=== PATIENT | female | born 1940 | race Caucasian/White ===

== ENCOUNTER → 2020-01-17 10:39 | Outpatient (CLI) | payer MEDICARE, SELFPAY ==
--- NOTE | ~2020-01-17 | CT_ITS ---
EXAMINATION: CT abdomen pelvis w con DATE: 01/17/2020 11:19 INDICATION: Left mid and lower abdominal pain TECHNIQUE: Computed tomography (CT) of the abdomen and pelvis was performed with 100 cc Omnipaque 350 intravenous contrast. Automated exposure control and iterative reconstruction technique were employe d. Exam dose: 981.41 mGy-cm total exam DLP. COMPARISON: None. FINDINGS: There is minimal discoid atelectasis in the left lower lobe. Mild cardiomegaly. No pericard ial or pleural effusion. Small sliding hiatal hernia. There are multiple up to approximately 1 cm faceted gallstones. No gallbladder wall thickening or per icholecystic fluid or inflammation. No hepatic, splenic, pancreatic, adrenal space-occupying mass lesion is evident. There is a 2.1 cm indeterminate hypoattenuating mass of the upper pole of the right kidney. Renal amandeep plasm is not excluded. Consider further evaluation with MRI. Approximately 5 mm hypoattenuating lesion of the lower pole of the right kidney, indeterminate. There is mild hydronephrosis and pelviectasis on the left. No left renal space occupying mass lesion is evident. No urinary tract calculus is evident. The urinary bladder is unremarkable. Status post hy sterectomy. Normal appendix. There are innumerable diverticula of the sigmoid and descending colon and to a lesser extent the righ t colon. There is prominent irregular thickening of the wall of the descending colon in the left midabdomen, w ith pericolic soft tissue irregular density. Differential diagnosis includes carcinoma of the descend ing colon, diverticulitis. There are multiple small soft tissue densities along the anterolateral asp ect of the abdomen along the anterior aspect of the proximal descending colon; soft tissue metastatic lesions or inflammatory or metastatic lymph nodes are not excluded. Diffuse idiopathic skeletal hyperostosis of the thoracic spine. Diffuse osteopenia. Grade 1 anterolisthesis at L4-5 due to degenerative change at the apophyseal joints. No suspicious osteolytic or osteoblastic lesions are noted. 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 IMPRESSION: Irregular focal soft tissue thickening of the wall of the descending colon, suspicious f or descending colon carcinoma, less likely diverticulitis. There may be some adjacent inflammatory or metastatic lymph nodes or metastases in the proximal descending colon and pericolic soft tissues 2.1 cm indeterminate hypoattenuating upper pole right renal mass; hypernephroma is not excluded Indeterminate 5 mm hypoattenuating lesion of the lower pole of the right kidney Cholelithiasis Small sliding hiatal hernia Reviewed, dictated and finalized at [facility]. Reviewed, dictated and finalized at [facility]. IMPRESSION: Irregular focal soft tissue thickening of the wall of the descendi ng colon, suspicious for descending colon carcinoma, less likely diverticulitis . There may be some adjacent inflammatory or metastatic lymph nodes or metastas es in the proximal descending colon and pericolic soft tissues 2.1 cm indeterminate hypoattenuating upper pole right renal mass; hypernephroma is not excluded Indeterminate 5 mm hypoattenuating lesion of the lower pole of the right kidney Cholelithiasis Small sliding hiatal hernia
[2020-01-17 11:10] LABS: Estimated Glomerular Filt Rate 53
== END ==
PROVIDERS: PCP Internal Medicine; Visit Provider Internal Medicine
DX: R10.30 Lower abdominal pain, unspecified (principal); R93.3 Abnormal findings on diagnostic imaging of other parts of digestive tract; N28.9 Disorder of kidney and ureter, unspecified; K80.20 Calculus of gallbladder without cholecystitis without obstruction; K44.9 Diaphragmatic hernia without obstruction or gangrene
CPT/HCPCS: 74177; Q9967

== ENCOUNTER 2020-01-23 01:24 | Outpatient (CLI) | payer MEDICARE, SELFPAY ==
[2020-01-23 18:11] LABS: SARS-CoV-2 RNA PCR Positive
== END 2020-01-23 01:25 | disposition home or self-care (01) ==
LOC: ANHCOVIDDT 01:26
PROVIDERS: PCP Internal Medicine; Visit Provider Internal Medicine Gastroenterology
DX: Z01.812 Encounter for preprocedural laboratory examination (principal); Z20.828 Contact with and (suspected) exposure to other viral communicable diseases
CPT/HCPCS: 87635; C9803; U0003

== ENCOUNTER 2020-02-21 01:10 | Outpatient (CLI) | payer MEDICARE, SELFPAY ==
[2020-02-21 20:50] LABS: SARS-CoV-2 RNA PCR Negative
== END 2020-02-21 01:11 | disposition home or self-care (01) ==
LOC: ANHCOVIDDT 01:10
PROVIDERS: PCP Internal Medicine; Visit Provider Internal Medicine Gastroenterology
DX: Z01.812 Encounter for preprocedural laboratory examination (principal); Z20.828 Contact with and (suspected) exposure to other viral communicable diseases
CPT/HCPCS: 87635; C9803; U0003

== ENCOUNTER 2020-02-23 00:51 | Day surgery (SDC) | payer MEDICARE, SELFPAY ==
[2020-01-20 13:46] VITALS: BMI 31.8
--- NOTE | 2020-01-24 07:06 | SUR.PREOP ---
[id number] patient called with results of Covid test. Instructed patient to follow up with her primary physician or go to the nearest emergency room if she felt she was getting sicker. Patient complain of just sinus drainage. Instructed to contacted Dr. Gilbert's office in a couple of weeks to reschedule exam. We also discussed that the [facility] would be calling her with further instructions.
[2020-02-17 14:56] VITALS: BMI 30.4
--- NOTE | 2020-02-23 09:05 | WPDANESEPPF ---
Anes - Initial Pre Proc Eval Procedure: Operation Date: 02/23/20 10:00 Proposed Procedures p Colonoscopy - Solo Gilbert MD Date/Time: 02/23/20 09:05 Surgeon: Solo Gilbert MD Pre Op Diagnosis: Abnormal CT Scan, Anemia Patient Data Age: 80 Gender: F Height: 1.65 m Weight: 83 kg Allergies Allergy/AdvReac Type Severity Reaction Status Date / Time lisinopril Allergy Unknown Unknown Verified 02/23/20 09:19 Home Medications Medication Instructions Recorded Confirmed Type carvedilol 3.125 mg tablet 3.125 mg PO Q12H #180 tablet 07/03/19 02/17/20 Rx aspirin 81 mg tablet,delayed 81 mg PO DAILY 07/25/19 02/17/20 History release cholecalciferol (vitamin D3) 25 3,000 unit PO DAILY 07/25/19 02/17/20 History mcg (1,000 unit) capsule losartan 50 mg tablet 50 mg PO DAILY 07/25/19 02/17/20 History magnesium 250 mg tablet 250 mg PO DAILY 07/25/19 02/17/20 History atorvastatin 20 mg PO DAILY 02/17/20 02/17/20 History ferrous sulfate [iron] 325 mg PO EVERY OTHER DAY 02/17/20 02/17/20 History zinc 50 mg PO BID 02/17/20 02/17/20 History Patient hx anesthesia problems: none Family hx anesthesia problems: none PMFSH Past Medical History Medical History (Updated 02/23/20 @ 09:06 by Chadd Ulrich MD) Aftercare following right knee joint replacement surgery Arthritis CAD (coronary artery disease) Chronic GERD 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 LEWIS (dyspnea on exertion) Dyslipidemia Essential hypertension Obesity Surgical History Surgical History (Updated 07/25/19 @ 10:32 by Nellie Puentes CMA) History of bladder repair surgery History of heart surgery Family History Family History (Updated 06/05/17 @ 13:22 by DOCTOR UNKNOWN) Father Family history of cardiovascular disease Mother Family history of cardiovascular disease Other Diabetes mellitus Family history of arthritis Hypertension Social History Social History Smoking packs per day: 1 Smoking cigarettes per day: 20.0 Years smoked: 19 Smoking pack-years: 19.00 Smoking status: Former smoker Tobacco type: cigarettes Smoking end date: 04/20/76 Alcohol intake: never Substance use: never Substance use type: does not use Living arrangements: with family Spiritual care concerns: No Anes - Eval Final PreProcedure Day of Procedure 02/23/20 09:05 Patient weight: obese Heart: regular rate and rhythm Lungs: clear to auscultation and normal air movement Airway: Mallampati scale class II Neurological: alert and oriented Last oral intake: >/= 8 hours ASA classification: III Emergent: no Anesthetic plan: proceed Anesthesia type and monitoring: general GIVS Informed Consent: The patient's anesthetic plan and its attendant risks and benefits were discussed with the patient/family/POA. Questions were solicited and answers provided to the satisfaction of the patient/family/POA.
[2020-02-23 09:20] VITALS: BP 146/79; PULSE 78; RESP 20; TEMP 36.2; O2SAT 100
[2020-02-23] MEDS: LACTATED RINGERS 1,000 ML 150 ML IV CONT (09:34)
--- NOTE | 2020-02-23 10:12 | WPDGICN ---
Assessment and Plan Assessment and plan (1) Abnormal CT scan, colon: Code(s): R93.3 - Abnormal findings on diagnostic imaging of other parts of digestive tract Status: Acute Assessment and Plan: Patient has a CT scan suggesting mass of the colon versus diverticulitis. Patient continues to have left-sided abdominal pain and has developed normochromic normocytic anemia. Plan is for colonoscopy to assess for etiology of pain in abnormality seen on exam. Further recommendations will be given after endoscopy. GI Consult Note Consult date/time: 02/23/20 10:12 HPI: Nery Bailey is a 80 year old female Seen in evaluation at the request of Dr. Sohan Esposito. Patient presents because of abnormal CT scan. Patient developed left-sided abdominal pain in November. Initially treated with laxatives. Subsequently had a CT scan in December which revealed possible mass versus diverticulitis. Colonoscopy was arranged but limited because of COVID infection. Patient had mild sinus drainage. COVID status returned to normal and she presents today for endoscopy. She denies any blood in her stools. Her bowel habits now our normal. She denies any weight loss. Family history noncontributory. Continues to have mild left-sided discomfort. 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 LEWIS (dyspnea on exertion) Dyslipidemia Essential hypertension Obesity Surgical History Surgical History (Updated 07/25/19 @ 10:32 by Nellie Puentes CMA) History of bladder repair surgery History of heart surgery Family History Family History (Updated 06/05/17 @ 13:22 by DOCTOR UNKNOWN) Father Family history of cardiovascular disease Mother Family history of cardiovascular disease Other Diabetes mellitus Family history of arthritis Hypertension Social History Social History Smoking packs per day: 1 Smoking cigarettes per day: 20.0 Years smoked: 19 Smoking pack-years: 19.00 Smoking status: Former smoker Tobacco type: cigarettes Smoking end date: 04/20/76 Alcohol intake: never Substance use: never Substance use type: does not use Living arrangements: with family Spiritual care concerns: No Meds Home Medications and Allergies Home Medications Medication Instructions Recorded Confirmed Type carvedilol 3.125 mg tablet 3.125 mg PO Q12H #180 tablet 07/03/19 02/17/20 Rx aspirin 81 mg tablet,delayed 81 mg PO DAILY 07/25/19 02/17/20 History release cholecalciferol (vitamin D3) 25 3,000 unit PO DAILY 07/25/19 02/17/20 History mcg (1,000 unit) capsule losartan 50 mg tablet 50 mg PO DAILY 07/25/19 02/17/20 History magnesium 250 mg tablet 250 mg PO DAILY 07/25/19 02/17/20 History atorvastatin 20 mg PO DAILY 02/17/20 02/17/20 History ferrous sulfate [iron] 325 mg PO EVERY OTHER DAY 02/17/20 02/17/20 History zinc 50 mg PO BID 02/17/20 02/17/20 History Allergies Allergy/AdvReac Type Severity Reaction Status Date / Time lisinopril Allergy Unknown Unknown Verified 02/23/20 09:19 Vital Signs Vital Signs - 24 hr 02/23/20 09:20 Temperature 97.1 F L Pulse Rate 78 Respiratory Rate 20 Blood Pressure 146/79 H Pulse Oximetry 100 Exam Narrative: Exam Narrative: Physical exam reveals patient to be alert. Vital signs stable. HEENT exam unremarkable. Lungs are clear to auscultation and percussion. Heart is without murmur or extra sounds. Abdominal exam bowel sounds present soft nontender with no organomegaly. Digital external rectal exam normal.
[2020-02-23 10:46] VITALS: BP 92/46; PULSE 70; RESP 26; O2SAT 97
[2020-02-23 10:56] VITALS: BP 110/52; PULSE 66; RESP 18; O2SAT 99
[2020-02-23 11:15] VITALS: BP 113/51; PULSE 72; RESP 24; O2SAT 100
== END 2020-02-23 11:20 | disposition home or self-care (01) ==
PROVIDERS: PCP Internal Medicine; Visit Provider Internal Medicine Gastroenterology
PROC: 0DJD8ZZ Inspection of Lower Intestinal Tract, Via Natural or Artificial Opening Endoscopic (ICD-10-PCS; CPT 45378; principal; 2020-02-23 10:00)
DX: C18.6 Malignant neoplasm of descending colon (principal); K57.30 Diverticulosis of large intestine without perforation or abscess without bleeding; K64.8 Other hemorrhoids; I25.10 Atherosclerotic heart disease of native coronary artery without angina pectoris; I10 Essential (primary) hypertension; E78.5 Hyperlipidemia, unspecified; K21.9 Gastro-esophageal reflux disease without esophagitis; Z87.891 Personal history of nicotine dependence; E66.9 Obesity, unspecified; Z68.28 Body mass index [BMI] 28.0-28.9, adult; Z79.82 Long term (current) use of aspirin
CPT/HCPCS: 45380; 88305; J2370; J2704; J7120

== ENCOUNTER 2020-04-18 09:40 | Outpatient (CLI) | payer MEDICARE, SELFPAY ==
[2020-04-18 10:19] LABS: Alanine Aminotransferase 11 U/L (4-35); Alkaline Phosphatase 61 U/L (38-126); Anion Gap 9 mmol/L (8-16); Aspartate Amino Transferase 23 U/L (14-36); Bilirubin,Total 0.5 mg/dL (0.2-1.3); Blood Urea Nitrogen 17 mg/dL (7-17); Calcium 9.5 mg/dL (8.4-10.2); Carbon Dioxide 25 mmol/L (22-30); Chloride 104 mmol/L (98-107); Cholesterol 189 mg/dL (0-200); Estimated Glomerular Filt Rate > 60; Glucose 95 mg/dL (65-105); HDL Direct 45 mg/dL; Potassium 4.4 mmol/L (3.4-5.0); Sodium 138 mmol/L (137-145); Triglycerides 163 mg/dL (<150)
[2020-04-18 10:29] LABS: LDL Cholesterol Direct 94 mg/dL
== END 2020-04-18 09:41 | disposition home or self-care (01) ==
PROVIDERS: PCP Internal Medicine; Visit Provider Internal Medicine Cardiovascular Disease
DX: E78.5 Hyperlipidemia, unspecified (principal)
CPT/HCPCS: 36415; 80053; 80061

== ENCOUNTER 2020-04-25 09:34 | Outpatient (CLI) | payer MEDICARE, SELFPAY ==
--- NOTE | 2020-04-25 09:38 | ECHO_ITS ---
Patient Info Name: Nery Bailey Age: 80 years : 1940 Gender: Female Ht: 64 in Wt: 173 lbs BSA: 1.91 m2 HR: 65 bpm BP: 171 / 80 mmHg Heart Rhythm: Sinus Rhythm Technical Quality: Good Exam Date: 04/25/2020 9:48 AM Exam Location: [facility] Patient Status: Outpatient Admit Date: 04/25/2020 Staff Ordering Physician: Reji Rincon DO [employer] As[employer]er: James Steele RDCS Attending Provider: Reji Rincon DO Referring Physician: Sergey HERNANDES; Exam Type: CA echo doppler color flow Study Info Indications I25.719 - Atherosclerosis of autologous vein coronary artery bypass graft(s) with unspecified angina pectoris Complete two-dimensional, color flow and Doppler transthoracic echocardiogram is performed. Strain analysis performed. History/Risk Factors CAD s/p CABG 28 years ago. Summary 1. Complete two-dimensional, color flow and Doppler transthoracic echocardiogram is performed. 2. Left ventricular chamber dimension is normal. 3. Left ventricular systolic function is normal, estimated at 65-70%. 4. There is mildly increased left ventricular wall thickness. 5. The left ventricular diastolic function is grade I diastolic dysfunction. 6. E/e' 10 is mildly elevated. 7. Global longitudinal strain is abnormal at -14.4%. 8. Left atrial chamber dimension is moderately enlarged. 9. There is mild aortic valve sclerosis. 10. There is trace aortic valve regurgitation. 11. There is trace mitral valve regurgitation. 12. No pulmonary hypertension, estimated pulmonary arterial systolic pressure is 25 mmHg. Left Ventricle E/e' 10 is mildly elevated. Global longitudinal strain is abnormal at -14.4%. Left ventricular chamber dimension is normal. Left ventricular systolic function is normal, estimated at 65-70%. There is mildly increased left ventricular wall thickness. The left ventricular diastolic function is grade I diastolic dysfunction. Right Ventricle Right ventricular chamber dimension is normal. Right ventricular systolic function is normal. Left Atria Left atrial chamber dimension is moderately enlarged. Right Atria Right atrial chamber dimension is normal. Aortic Valve The aortic valve is trileaflet. There is mild aortic valve sclerosis. There is no aortic valve stenosis. There is trace aortic valve regurgitation. Pulmonic Valve There is no pulmonic regurgitation. Mitral Valve There is no mitral valve stenosis. There is trace mitral valve regurgitation. Tricuspid Valve There is no tricuspid valve regurgitation. No pulmonary hypertension, estimated pulmonary arterial systolic pressure is 25 mmHg. Pericardium/Pleural There is no pericardial effusion. Inferior Vena Cava Normal inferior vena cava with >50% collapse upon inspiration consistent with normal right atrial pressure, 5 mmHg. Aorta The aortic root size at the sinus of Valsalva is normal. Left Ventricular Outflow Tract Name Value Normal LVOT 2D LVOT Diameter 2.0 cm LVOT Doppler LVOT Peak Gradient 3 mmHg LVOT Mean Gradient 2 mmHg LVOT V
== END 2020-04-25 09:35 | disposition home or self-care (01) ==
LOC: ANHCARD 09:35
PROVIDERS: PCP Internal Medicine; Visit Provider Internal Medicine Cardiovascular Disease
DX: I25.719 Atherosclerosis of autologous vein coronary artery bypass graft(s) with unspecified angina pectoris (principal)
CPT/HCPCS: 93306